=== PATIENT | male | born 1985 | race Caucasian/White ===

== ENCOUNTER 2016-08-25 12:20 | Emergency (ER) | payer SELFPAY ==
[~2016-08-25] VITALS: Ht 180.3 cm; Wt 78.2 kg
[2016-08-25 12:24] VITALS: BP 155/75
== END 2016-08-25 13:41 | disposition home or self-care (01) ==
LOC: ED 13:30
DX: S61.216A Laceration without foreign body of right little finger without damage to nail, initial encounter (principal); J45.909 Unspecified asthma, uncomplicated; W26.0XXA Contact with knife, initial encounter; Y93.89 Activity, other specified; Y99.8 Other external cause status; Y92.009 Unspecified place in unspecified non-institutional (private) residence as the place of occurrence of the external cause
CPT/HCPCS: 12001